=== PATIENT | male | born 1985 | race Caucasian/White ===

== ENCOUNTER 2020-01-08 03:58 | Emergency (ER) | payer OTHER ==
[2020-01-08] MEDS ORDERED: Dexamethasone 10 MG/ML SDV IVPUSH ONE (04:35)
--- NOTE | 2020-01-08 04:52 | EDM.PDOC ---
ED HPI GENERAL MEDICAL PROBLEM - General Chief Complaint: Back Pain or Injury Stated Complaint: BOTH LEGS ARE GOING NUMB Time Seen by Provider: 01/08/20 04:25 - History of Present Illness INITIAL COMMENTS - FREE TEXT/NARRATIVE: 34-year-old male with history of disc surgery in the past presenting to ER for lower back pain lower extremity weakness and numbness. Symptoms began at 11 AM day prior. No trauma no fever no IV drug use. States that he is slipped legs have been giving out he feels numbness and he feels like his legs are like Jell -O sometimes. patient reports similar symptoms when he had the back surgery in the past. back Pain Score (Numeric/FACES): 6 - Related Data Allergies Allergy/AdvReac Type Severity Reaction Status Date / Time No Known Allergies Allergy Verified 01/08/20 04:34 Home Meds: Home Meds Diclofenac Sodium [Voltaren] 0 mg PO ASDIRECTED PRN 01/08/20 [History] Past Medical History Neurological History: Reports: Other (See Below) Other Neuro History: herniated disc - Infectious Disease History Infectious Disease History: Reports: Chicken Pox - Past Surgical History Neurological Surgical History: Reports: Other (See Below) Other Neurological Surgeries/Procedures: back sx for herniated disc Social & Family History - Family History Family Medical History: Noncontributory - Tobacco Use Smoking Status *Q: Never Smoker Second Hand Smoke Exposure: No - Caffeine Use Caffeine Use: Reports: Coffee - Recreational Drug Use Recreational Drug Use: No ED ROS GENERAL - Review of Systems Review Of Systems: Comprehensive ROS is negative, except as noted in HPI. ED EXAM, NEURO - Physical Exam Exam: See Below Text/Narrative:: DP pulses equal bilatterally lower extremities warm and well perfused. Exam Limited By: No Limitations General Appearance: Alert, WD/WN Ears: Normal External Exam Nose: Normal Inspection Neck: Normal Inspection Respiratory/Chest: Lungs Clear Cardiovascular: Regular Rate, Rhythm GI/Abdominal: Soft, Non-Tender Rectal (Males) Exam: Normal Exam, Normal Rectal Tone Neurological: Alert, Difficulty Walking, Other (lower extremity: left, 4/5 at the hip (flex ext), 3-4/5 at the knee (flex/extend), 4/5 in the ankles b/l). No : Saddle Anesthesia Back Exam: Other (mild ttp in the lumbar spine, healed spine ) Extremities: Non-Tender Course - Vital Signs Last Recorded V/S: Last Vital Signs Temp 97.2 F 01/08/20 04:47 Pulse 80 01/08/20 04:47 Resp 18 01/08/20 04:47 BP 175/115 H 01/08/20 04:47 Pulse Ox 98 01/08/20 04:47 - Orders/Labs/Meds Orders: Active Orders 24 hr Category Date Time Status BASIC METABOLIC PANEL,BMP [CHEM] Stat Lab 01/08/20 04:43 Ordered Labs: Laboratory Tests 01/08/20 Range/Units 04:42 WBC 9.88 (4.0-11.0) K/uL RBC 5.67 (4.50-5.90) M/uL Hgb 15.8 (13.0-17.0) g/dL Hct 48.5 (38.0-50.0) % MCV 85.5 (80.0-98.0) fL MCH 27.9 (27.0-32.0) pg MCHC 32.6 (31.0-37.0) g/dL RDW Std Deviation 41.8 (28.0-62.0) fl RDW Coeff of Armida 13 (11.0-15.0) % Plt Count 332 (150-400) K/uL MPV 9.00 (7.40-12.00) fL Nucleated RBC % 0.0 /100WBC Nucleated RBCs # 0 K/uL Meds: Medications Discontinued Medications Generic Name Dose Route Start Last Admin Trade Name Freq PRN Reason Stop Dose Admin Dexamethasone 16 mg 01/08/20 04:35 01/08/20 04:42 Dexamethasone IVPUSH 01/08/20 04:36 16 mg ONETIME ONE Administration - Re-Assessments/Exams Free Text/Narrative Re-Assessment/Exam: 01/08/20 04:51 patient will be emrgently transferred to [place] for supected cauda equina, decadron to be given here. spoke with Dr Weir who accepted the patient. the fastest way to transfer the patient is via fixed wing. Departure - Departure Time of Disposition: 04:53 Disposition: DC/Tfer to [facility] Clinical Impression: Cauda equina compression - Discharge Information [facility] [place] [facility] Care Provider[facility] - Forms: ED Department Discharge Sepsis Event Note - Evaluation Sepsis Screening Result: No Definite Risk - Focused Exam Vital Signs: Vital Signs Temp Pulse Resp BP Pulse Ox 01/08/20 04:47 97.2 F 80 18 175/115 H 98 01/08/20 04:12 96.1 F L 97 18 175/129 H 97 Date Exam was Performed: 01/08/20 Time Exam was Performed: 04:52 - My Orders Last 24 Hours: My Active Orders 01/08/20 04:43 BASIC METABOLIC PANEL,BMP [CHEM] Stat - Assessment/Plan Last 24 Hours: My Active Orders 01/08/20 04:43 BASIC METABOLIC PANEL,BMP [CHEM] Stat
[2020-01-08 05:03] LABS: BLOOD UREA NITROGEN,BUN 17 mg/dL (7.0-18.0); CARBON DIOXIDE,CO2 28.2 mmol/L (21.0-32.0); CHLORIDE,CL 105 mmol/L (98-107); GLUCOSE RANDOM 101 mg/dL (74-106); POTASSIUM,K 3.6 mmol/L (3.5-5.1); SODIUM,NA 144 mmol/L (136-148)
== END 2020-01-08 05:30 | disposition critical access hospital (66) ==
LOC: MW.ED 03:58
DX: G83.4 Cauda equina syndrome (principal)
CPT/HCPCS: 36415; 80048; 85027; 96374; 99284; J1100; 99285

== ENCOUNTER 2021-09-05 18:40 | Emergency (ER) | payer OTHER ==
--- NOTE | 2021-09-05 19:10 | EDM.PDOC ---
ED HPI GENERAL MEDICAL PROBLEM - General Chief Complaint: Respiratory Problem Stated Complaint: LOW OXYGEN Time Seen by Provider: 09/05/21 19:05 Source of Information: Reports: Patient History Limitations: Reports: No Limitations - History of Present Illness INITIAL COMMENTS - FREE TEXT/NARRATIVE: HISTORY AND PHYSICAL: History of present illness: Patient is a 36 year old male who presents to the ED with complaints of SOB since being diagnosed with COVID-19 this afternoon. He states he was given a prescription for an Albuterol inhaler, but didn't feel like it improved his SOB. Symptoms initially started a few days ago. History of HTN. Patient denies any fever, chills, headache, change in vision, syncope or near syncope. Denies any chest pain, back pain, abdominal pain, nausea, vomiting, diarrhea, constipation or dysuria. Has not noted any blood in urine or stool. Patient has been eating and drinking appropriately. No recent travel or sick contacts. Review of systems: As per history of present illness and below otherwise all systems reviewed and negative. Past medical history: As per history of present illness and as reviewed below otherwise noncontributory. Surgical history: As per history of present illness and as reviewed below otherwise noncontributory. Social history: See social history for further information Family history: As per history of present illness and as reviewed below otherwise noncontributory. Physical exam: General: Well developed and well nourished 36 year old male. Alert and orientated x 3. Nontoxic in appearance and in no acute distress. Vital signs are stable and have been reviewed by me. Nursing notes were reviewed. HEENT: Atraumatic, normocephalic, pupils equal and reactive bilaterally, negative for conjunctival pallor or scleral icterus, mucous membranes moist, TMs normal bilaterally, throat clear, neck supple, nontender, trachea midline. No drooling or trismus noted. No meningeal signs. No hot potato voice noted. Lungs: Clear to auscultation bilaterally. No wheezes, rales, or rhonchi. Chest nontender. Normal work of breathing, no accessory muscles used. Heart: S1S2, regular rate and rhythm without overt murmur, gallops, or rubs. No JVD. No peripheral edema Abdomen: Soft, nondistended, nontender. Skin: Intact, warm, dry. No lesions or rashes noted. Hematologic: No petechiae or purpra. Mucosa appropriate color and normal nail bed color and refill. Extremities: Atraumatic, moves all extremities per self without difficulty or deficits, negative for cords or calf pain. Neurovascular unremarkable. Neuro: Awake, alert, oriented. Cranial nerves II through XII unremarkable. Cerebellum unremarkable. Motor and sensory unremarkable throughout. Exam nonfocal. Psychiatric: Mood and affect are appropriate. Normal thought process. Answering questions appropriately. Please note that the patient was seen and evaluated during the 2019 SARS-CoV-2 novel coronavirus pandemic period. Community viral transmission is ongoing at time of this encounter and the emergency department is operating under pandemic response procedures. Medical Decision Making: Patient is a 36 year old male who presents to the ED with COVID 19 who complaints of SOB. Patient states he didn't have a chest xray or labs done at the clinic. His oxygen saturation is 90-92% on room air. Will do basic labs and obtain chest x-ray, lung sounds are clear. Labs are unremarkable. Chest x-ray is unremarkable. I did note that the patient briefly drop to 89% on RA, but quickly goes back to 92%. We discussed treatment options including admission for [facility]. He does not want to be admitted. We discussed home oxygen. I informed him it would require [facility] coming in from home to set this up for him. He refuses to wait, would like discharge. VSS, oxygen 93% RA. Will order outpatien MAT. I have talked with the patient about today's findings, in addition to providing specific details for plan of care. Reassessment at the time of disposition demonstrates that the patient is in no acute distress. The patient is stable for discharge, counseling was provided and we discussed in great detail signs and symptoms that would prompt them to return to the Emergency Department. Medication, follow up and supportive care measures were reviewed and discussed. Voices understanding and is agreeable to plan of care. Denies any further questions or concerns at this time. Diagnostics: CBC, CMP, chest x-ray Therapeutics: None Prescription: Outpatient antibody therapy Impression: COVID-19 Plan: 1. Your lab work and chest x-ray is within normal limits. Your oxygen saturation is borderline 90-93% on room air. Continue to monitor for trouble breathing, new confusion or inability to arouse, bluish lips or face or any of the other symptoms we discussed -if this occurs please return to the emergency room immediately. 2. Please self quarantine until cleared by [facility]. Inform any persons that you have been in contact with since you started becoming symptomatic that you have tested positive; they should be made aware and take the appropriate steps as needed. 3. You can take NyQuil during the evening to help get a restful night sleep. May alternate Tylenol and ibuprofen as needed for pain and fever management. 4. The [facility] department will be calling you and following up with you. The [id number] Hotline phone number , They are open Sunday - Sunday 7am - 7pm. Follow up with your primary care provider for re-evaluation as directed. Definitive disposition and diagnosis as appropriate pending reevaluation and review of above. - Related Data Allergies Allergy/AdvReac Type Severity Reaction Status Date / Time No Known Allergies Allergy Verified 09/05/21 18:49 Home Meds: Home Meds . [Unable to Verify Home Med List] 09/05/21 [History] Past Medical History Cardiovascular History: Reports: Hypertension Neurological History: Reports: Other (See Below) Other Neuro History: herniated disc - Infectious Disease History Infectious Disease History: Reports: Chicken Pox, Novel Coronavirus - Past Surgical History Neurological Surgical History: Reports: Other (See Below) Other Neurological Surgeries/Procedures: back sx for herniated disc Social & Family History - Family History Family Medical History: No Pertinent Family History - Tobacco Use Tobacco Use Status *Q: Never Tobacco User - Caffeine Use Caffeine Use: Reports: Coffee - Recreational Drug Use Recreational Drug Use: No ED ROS GENERAL - Review of Systems Review Of Systems: Comprehensive ROS is negative, except as noted in HPI. ED EXAM, GENERAL - Physical Exam Exam: See Below (See dictation) Course - Vital Signs Last Recorded V/S: Last Vital Signs Temp 98.4 F 09/05/21 18:51 Pulse 111 H 09/05/21 20:01 Resp 20 09/05/21 20:01 BP 120/64 09/05/21 20:01 Pulse Ox 92 L 09/05/21 20:01 - Orders/Labs/Meds Labs: Laboratory Tests 09/05/21 09/05/21 Range/Units 19:25 19:25 WBC 9.12 (4.0-11.0) K/uL RBC 5.22 (4.50-5.90) M/uL Hgb 14.8 (13.0-17.0) g/dL Hct 42.6 (38.0-50.0) % MCV 81.6 (80.0-98.0) fL MCH 28.4 (27.0-32.0) pg MCHC 34.7 (31.0-37.0) g/dL RDW Std Deviation 39.0 (28.0-62.0) fl RDW Coeff of Armida 13 (11.0-15.0) % Plt Count 170 (150-400) K/uL MPV 9.20 (7.40-12.00) fL Neut % (Auto) 73.2 (48.0-80.0) % Lymph % (Auto) 20.7 (16.0-40.0) % Ogle % (Auto) 6.0 (0.0-15.0) % Eos % (Auto) 0.0 (0.0-7.0) % Baso % (Auto) 0.1 (0.0-1.5) % Neut # (Auto) 6.7 H (1.4-5.7) K/uL Lymph # (Auto) 1.9 (0.6-2.4) K/uL Ogle # (Auto) 0.6 (0.0-0.8) K/uL Eos # (Auto) 0.0 (0.0-0.7) K/uL Baso # (Auto) 0.0 (0.0-0.1) K/uL Nucleated RBC % 0.0 /100WBC Nucleated RBCs # 0 K/uL Sodium 127 L (136-148) mmol/L Potassium 4.0 (3.5-5.1) mmol/L Chloride 89 L (98-107) mmol/L Carbon Dioxide 28.6 (21.0-32.0) mmol/L BUN 18 (7.0-18.0) mg/dL Creatinine 1.4 H (0.8-1.3) mg/dL Est Cr Clr Drug Dosing TNP Estimated GFR (MDRD) 56.7 ml/min Glucose 126 H (74-106) mg/dL Calcium 7.5 L (8.5-10.1) mg/dL Total Bilirubin 0.5 (0.2-1.0) mg/dL AST 97 H (15-37) IU/L ALT 249 H (14-63) IU/L Alkaline Phosphatase 37 L (46-116) U/L Total Protein 8.0 (6.4-8.2) g/dL Albumin 3.3 L (3.4-5.0) g/dL Globulin 4.7 H (2.6-4.0) g/dL Albumin/Globulin Ratio 0.7 L (0.9-1.6) Departure - Departure Time of Disposition: 20:00 Disposition: Home, Self-Care 01 Clinical Impression: COVID-19 - Discharge Information Instructions: 10 Things You Can Do to Manage Your COVID-19 Symptoms at Home - [facility] (05/06/2021) Referrals: Anselmo Kelley [Primary Care Provider] - Forms: ED Department Discharge Additional Instructions: The following information is given to patients seen in the emergency department who are being discharged to home. This information is to outline your options for follow-up care. We provide all patients seen in our emergency department with a follow-up referral. The need for follow-up, as well as the timing and circumstances, are variable depending upon the specifics of your emergency department visit. If you don't have a primary care physician on staff, we will provide you with a referral. We always advise you to contact your personal physician following an emergency department visit to inform them of the circumstance of the visit and for follow-up with them and/or the need for any referrals to a consulting specialist. The emergency department will also refer you to a specialist when appropriate. This referral assures that you have the opportunity for follow-up care with a specialist. All of these measure are taken in an effort to provide you with optimal care, which includes your follow-up. Under all circumstances we always encourage you to contact your private physician who remains a resource for coordinating your care. When calling for follow-up care, please make the office aware that this follow-up is from your recent emergency room visit. If for any reason you are refused follow-up, please contact the [facility] Emergency Department at and asked to speak to the emergency department charge nurse. [facility] [address] [place] [id number] [facility] [address] [place] [id number] Thank you for choosing the [facility] emergency department in [place] for your medical needs today. It was a pleasure caring for you. Today you were seen in the emergency department for shortness of breathe with COVID. 1. Your lab work and chest x-ray is within normal limits. Your oxygen saturation is borderline 90-93% on room air. Continue to monitor for trouble breathing, new confusion or inability to arouse, bluish lips or face or any of the other symptoms we discussed -if this occurs please return to the emergency room immediately. The hospital should be calling you tomorrow to set up outpatient monoclonal antibody therapy infusion ( one time dose). 2. Please self quarantine until cleared by [facility]. Inform any persons that you have been in contact with since you started becoming symptomatic that you have tested positive; they should be made aware and take the appropriate steps as needed. 3. You can take NyQuil during the evening to help get a restful night sleep. May alternate Tylenol and ibuprofen as needed for pain and fever management. 4. The [facility] department will be calling you and following up with you. The [facility] 19 Hotline phone number , They are open Sunday - Sunday 7am - 7pm. Follow up with your primary care provider for re-evaluation as directed. Sepsis Event Note (ED) - Evaluation Sepsis Screening Result: No Definite Risk - Focused Exam Vital Signs: Vital Signs Temp Pulse Resp BP Pulse Ox 09/05/21 20:01 111 H 20 120/64 92 L 09/05/21 18:51 98.4 F 111 H 18 114/57 L 92 L
--- NOTE | 2021-09-05 19:42 | CR ---
INDICATION: low o2 TECHNIQUE: Chest 1 view. COMPARISON: None. FINDINGS: Cardiovascular and mediastinum: Heart size and vasculature are normal in caliber and appearance. Mediastinum is within normal limits. Lungs and pleural spaces: Lungs are clear. No sign of infiltrate or mass. No sign of pleural effusion. No pneumothorax. Bones and soft tissues: No significant findings. IMPRESSION: Unremarkable chest. Dictated by: Yaniv Lucero MD @ 09/05/2021 19:41:02 (Electronically Signed)
[2021-09-05 19:49] LABS: BLOOD UREA NITROGEN,BUN 18 mg/dL (7.0-18.0); CARBON DIOXIDE,CO2 28.6 mmol/L (21.0-32.0); CHLORIDE,CL 89 mmol/L (98-107); GLUCOSE RANDOM 126 mg/dL (74-106); SODIUM,NA 127 mmol/L (136-148)
== END 2021-09-05 20:08 | disposition home or self-care (01) ==
LOC: MW.ED 18:40
DX: U07.1 COVID-19 (principal); I10 Essential (primary) hypertension
CPT/HCPCS: 36415; 71045; 71045-26; 80053; 85025; 99285-25

== ENCOUNTER 2021-09-06 07:58 | Inpatient (IN) | payer OTHER ==
--- NOTE | 2021-09-06 08:16 | EDM.PDOC ---
ED HPI GENERAL MEDICAL PROBLEM - General Chief Complaint: Respiratory Problem Stated Complaint: LOW OXYGEN Time Seen by Provider: 09/06/21 08:30 Source of Information: Reports: Patient History Limitations: Reports: No Limitations - History of Present Illness INITIAL COMMENTS - FREE TEXT/NARRATIVE: Patient is a 36-year-old male who presents today for worsening shortness of breath. Patient tested positive for Covid a few days ago and states has been feeling worse. Stated shortness of breath is getting worse and he feels more fatigued as well he is able to tolerate p.o. but not eating as much he normally does. Denies any abdominal pain chest pain fever chills or other symptoms but discharge on breath is worse with exertion. - Related Data Allergies Allergy/AdvReac Type Severity Reaction Status Date / Time No Known Allergies Allergy Verified 09/05/21 18:49 Home Meds: Home Meds . [Unable to Verify Home Med List] 09/05/21 [History] Past Medical History Cardiovascular History: Reports: Hypertension Neurological History: Reports: Other (See Below) Other Neuro History: herniated disc - Infectious Disease History Infectious Disease History: Reports: Chicken Pox, Novel Coronavirus - Past Surgical History Neurological Surgical History: Reports: Other (See Below) Other Neurological Surgeries/Procedures: back sx for herniated disc Social & Family History - Family History Family Medical History: No Pertinent Family History - Caffeine Use Caffeine Use: Reports: Coffee ED ROS GENERAL - Review of Systems Review Of Systems: See Below Constitutional: Reports: Fatigue HEENT: Reports: No Symptoms Respiratory: Reports: Shortness of Breath Cardiovascular: Reports: No Symptoms Endocrine: Reports: No Symptoms GI/Abdominal: Reports: No Symptoms : Reports: No Symptoms Musculoskeletal: Reports: No Symptoms Skin: Reports: No Symptoms Neurological: Reports: No Symptoms Psychiatric: Reports: No Symptoms Hematologic/Lymphatic: Reports: No Symptoms Immunologic: Reports: No Symptoms ED EXAM, GENERAL - Physical Exam Exam: See Below Exam Limited By: No Limitations General Appearance: Alert, WD/WN, No Apparent Distress Eye Exam: Bilateral Eye: EOMI, PERRL Ears: Normal External Exam Nose: Normal Inspection Throat/Mouth: Normal Inspection Head: Atraumatic Neck: Normal Inspection, Supple, Non-Tender Respiratory/Chest: No Respiratory Distress, Lungs Clear, Normal Breath Sounds Cardiovascular: Normal Peripheral Pulses, Regular Rate, Rhythm GI/Abdominal: Normal Bowel Sounds, Soft, Non-Tender Back Exam: Normal Inspection Neurological: Alert, Oriented, CN II-XII Intact, Normal Cognition Skin Exam: Warm #1 Interpretation EKG Date: 09/06/21 Time: 08:00 Rhythm: Other (sinus tachy) Rate (Beats/Min): 106 ST-T: Normal Course - Vital Signs Last Recorded V/S: Last Vital Signs Temp 97.8 F 09/06/21 07:58 Pulse 111 H 09/06/21 08:25 Resp 22 H 09/06/21 08:25 BP 144/85 H 09/06/21 07:58 Pulse Ox 92 L 09/06/21 08:25 - Orders/Labs/Meds Orders: Active Orders 24 hr Category Date Time Status Patient Status [ADT] Routine ADT 09/06/21 09:08 Active RT Aerosol Therapy [RC] ASDIRECTED Care 09/06/21 08:25 Active COMPREHENSIVE METABOLIC PN,CMP [CHEM] Stat Lab 09/06/21 08:44 Received CORONAVIRUS COVID-19 NELLY [MOLEC] Stat Lab 09/06/21 08:12 Ordered CULTURE BLOOD [BC] Stat Lab 09/06/21 08:09 Received CULTURE BLOOD [BC] Stat Lab 09/06/21 08:44 Received TROPONIN I [CHEM] Stat Lab 09/06/21 08:44 Received UA W/MYLES RFLX IF INDICATED [URIN] Stat Lab 09/06/21 09:06 Ordered Remdesivir 200 mg Med 09/06/21 08:45 Active Sodium Chloride 0.9% [Normal Saline] 250 ml IV ONETIME Sodium Chloride 0.9% [Normal Saline] 1,000 ml Med 09/06/21 08:29 Active IV .Bolus Blood Culture x2 Reflex Set [OM.PC] Stat Oth 09/06/21 08:29 Ordered Medication Orders Sodium Chloride (Normal Saline) 1,000 mls @ 1,000 mls/hr IV .Bolus ONE Stop: 09/06/21 09:28 Last Admin: 09/06/21 08:46 Dose: 1,000 mls/hr Documented by: RAMANA Remdesivir 200 mg/ Sodium (Chloride) 250 mls @ 250 mls/hr IV ONETIME ONE Stop: 09/06/21 09:44 Labs: Laboratory Tests 09/06/21 Range/Units 08:09 WBC 11.87 H (4.0-11.0) K/uL RBC 5.19 (4.50-5.90) M/uL Hgb 14.7 (13.0-17.0) g/dL Hct 42.1 (38.0-50.0) % MCV 81.1 (80.0-98.0) fL MCH 28.3 (27.0-32.0) pg MCHC 34.9 (31.0-37.0) g/dL RDW Std Deviation 39.0 (28.0-62.0) fl RDW Coeff of Armida 13 (11.0-15.0) % Plt Count 191 (150-400) K/uL MPV 9.80 (7.40-12.00) fL Neut % (Auto) 80.4 H (48.0-80.0) % Lymph % (Auto) 14.7 L (16.0-40.0) % [place] % (Auto) 4.8 (0.0-15.0) % Eos % (Auto) 0.0 (0.0-7.0) % Baso % (Auto) 0.1 (0.0-1.5) % Neut # (Auto) 9.6 H (1.4-5.7) K/uL Lymph # (Auto) 1.7 (0.6-2.4) K/uL [place] # (Auto) 0.6 (0.0-0.8) K/uL Eos # (Auto) 0.0 (0.0-0.7) K/uL Baso # (Auto) 0.0 (0.0-0.1) K/uL Nucleated RBC % 0.0 /100WBC Nucleated RBCs # 0 K/uL Meds: Medications Generic Name Dose Route Start Last Admin Trade Name Freq PRN Reason Stop Dose Admin Sodium Chloride 1,000 mls @ 1,000 mls/hr 09/06/21 08:29 09/06/21 08:46 Normal Saline IV 09/06/21 09:28 1,000 mls/hr .Bolus ONE Administration Remdesivir 200 mg/ Sodium 250 mls @ 250 mls/hr 09/06/21 08:45 Chloride IV 09/06/21 09:44 ONETIME ONE Discontinued Medications Generic Name Dose Route Start Last Admin Trade Name Freq PRN Reason Stop Dose Admin Albuterol/Ipratropium 3 ml 09/06/21 08:25 09/06/21 08:46 Albuterol/Ipratropium 3.0-0.5 Mg/3 Ml Neb Soln NEB 09/06/21 08:26 3 ml ONETIME ONE Administration Dexamethasone 10 mg 09/06/21 08:25 09/06/21 08:46 Dexamethasone 10 Mg/Ml Sdv IVPUSH 09/06/21 08:26 10 mg ONETIME ONE Administration Remdesivir 200 mg/ Sodium 250 mls @ 250 mls/hr 09/06/21 08:25 Chloride IV 09/06/21 08:26 ONETIME ONE - Re-Assessments/Exams Free Text/Narrative Re-Assessment/Exam: 09/06/21 09:05 And trigger sepsis protocol but symptoms are likely related to Covid and no bacterial source. We will send blood cultures UA but hold off on antibiotics and 20 cc/KG daily because we do not overload him do this positive in Covid 09/06/21 09:09 Patient will be admitted to the hospital for further care. Departure - Departure Time of Disposition: 09:09 Disposition: Home, Self-Care 01 Condition: Good Clinical Impression: COVID-19 - Discharge Information Referrals: PCP,None [Primary Care Provider] - Forms: ED Department Discharge Critical Care Note - Critical Care Note Total Time (mins): 45 Comments: Critical Care Procedure Note Authorized and Performed by: Dr. Carvalho Total critical care time: Approximately Due to a high probability of clinically significant, life threatening deteriora tion, the patient required my highest level of preparedness to intervene emergently and I personally spent this critical care time directly and personally managing the patient. This critical care time included obtaining a history; examining the patient; pulse oximetry; ordering and review of studies; arranging urgent treatment with development of a management plan; evaluation of patient's response to treatment; frequent reassessment; and, discussions with other providers. This critical care time was performed to assess and manage the high probability of imminent, life-threatening deterioration that could result in multi-organ failure. It was exclusive of separately billable procedures and treating other patients and teaching time. Sepsis Event Note (ED) - Evaluation Sepsis Screening Result: Possible Sepsis Risk - Focused Exam Vital Signs: Vital Signs Temp Pulse Resp BP Pulse Ox 09/06/21 08:25 111 H 22 H 92 L 09/06/21 07:58 97.8 F 109 H 20 144/85 H 82 L - My Orders Last 24 Hours: My Active Orders 09/06/21 08:09 CULTURE BLOOD [BC] Stat 09/06/21 08:12 CORONAVIRUS COVID-19 NELLY [MOLEC] Stat 09/06/21 08:25 RT Aerosol Therapy [RC] ASDIRECTED 09/06/21 08:29 Sodium Chloride 0.9% [Normal Saline] 1,000 ml IV .Bolus Blood Culture x2 Reflex Set [OM.PC] Stat 09/06/21 08:44 COMPREHENSIVE METABOLIC PN,CMP [CHEM] Stat CULTURE BLOOD [BC] Stat TROPONIN I [CHEM] Stat 09/06/21 08:45 Remdesivir 200 mg Sodium Chloride 0.9% [Normal Saline] 250 ml IV ONETIME 09/06/21 09:06 UA W/MYLES RFLX IF INDICATED [URIN] Stat 09/06/21 09:08 Patient Status [ADT] Routine - Assessment/Plan Last 24 Hours: My Active Orders 09/06/21 08:09 CULTURE BLOOD [BC] Stat 09/06/21 08:12 CORONAVIRUS COVID-19 NELLY [MOLEC] Stat 09/06/21 08:25 RT Aerosol Therapy [RC] ASDIRECTED 09/06/21 08:29 Sodium Chloride 0.9% [Normal Saline] 1,000 ml IV .Bolus Blood Culture x2 Reflex Set [OM.PC] Stat 09/06/21 08:44 COMPREHENSIVE METABOLIC PN,CMP [CHEM] Stat CULTURE BLOOD [BC] Stat TROPONIN I [CHEM] Stat 09/06/21 08:45 Remdesivir 200 mg Sodium Chloride 0.9% [Normal Saline] 250 ml IV ONETIME 09/06/21 09:06 UA W/MYLES RFLX IF INDICATED [URIN] Stat 09/06/21 09:08 Patient Status [ADT] Routine Plan: Patient is a 36-year-old male who presents today for worsening shortness of breath patient has a positive Covid a few days ago. Patient ox level was 82% on room air placed on 3 l an hour 94% breathing more comfortably. Will start steroids and remdesivir. Also obtain x-ray labs and likely admit.
[2021-09-06] MEDS ORDERED: Dexamethasone 10 MG/ML SDV IVPUSH ONE (08:25)
[2021-09-06] MEDS ORDERED: Albuterol/Ipratropium 3.0-0.5 MG/3 ML Neb Soln NEB ONE (08:25)
[2021-09-06] MEDS ORDERED: REMDESIVIR 200 MG in Sodium Chloride 0.9% 250 ML IV ONE ×2 (08:25→08:45)
[2021-09-06] MEDS ORDERED: Sodium Chloride 0.9% 1,000 ML IV ONE (08:29)
--- NOTE | 2021-09-06 09:06 | CR ---
Indication: Shortness of breath Comparison: Single-view chest September 05, 2021 Technique: Single AP view chest Findings: There is hyperinflation and mild interstitial change. There are patchy ground-glass and airspace opacities of the bilateral hemithoraces likely representing multifocal infiltrates. There is no pneumothorax. The cardiac silhouette is mildly prominent. The bony thorax is grossly intact. Impression: There are interstitial, ground-glass and airspace opacities with moderate interstitial prominence commensurate with likely developing multifocal infiltrates and/or pulmonary edema. Correlate with history of jiménez by wrist pneumonia. Dictated by Tyler Lim MD @ 09/06/2021 9:04:41 AM (Electronically Signed)
[2021-09-06 09:34] LABS: BLOOD UREA NITROGEN,BUN 16 mg/dL (7.0-18.0); CARBON DIOXIDE,CO2 26.5 mmol/L (21.0-32.0); CHLORIDE,CL 90 mmol/L (98-107); GLUCOSE RANDOM 124 mg/dL (74-106); POTASSIUM,K 3.9 mmol/L (3.5-5.1); SODIUM,NA 125 mmol/L (136-148)
--- NOTE | 2021-09-06 15:59 | PCM.HP.2 ---
H&P History of Present Illness - General Date of Service: 09/06/21 Admit Problem/Dx: Admission Diagnosis/Problem Admission Diagnosis/Problem Hypoxia - History of Present Illness Initial Comments - Free Text/Narative: 36 yo male who presents with one week of fevers, cough and several day history of shortness of breath. He denies any chest pain, or lightheadedness. On presentation he is requiring 3 L NC. He tested positive for COVID yesterday. Patient reports being vaccinated for COVID last year. - Related Data Allergies/Adverse Reactions: Allergies Allergy/AdvReac Type Severity Reaction Status Date / Time No Known Allergies Allergy Verified 09/06/21 13:07 Home Medications: Home Meds Cyclobenzaprine HCl 10 mg PO TID PRN 09/06/21 [History] Doxycycline [Doxycycline Hyclate] 100 mg PO Q12HR 09/06/21 [History] Naproxen Sodium 550 mg PO BID 09/06/21 [History] amLODIPine Besylate [Amlodipine Besylate] 10 mg PO DAILY 09/06/21 [History] hydroCHLOROthiazide [Hydrochlorothiazide] 25 mg PO DAILY 09/06/21 [History] lisinopriL [Lisinopril] 40 mg PO DAILY 09/06/21 [History] Past Medical History HEENT History: Reports: None Cardiovascular History: Reports: Hypertension Respiratory History: Reports: None Gastrointestinal History: Reports: None Genitourinary History: Reports: None Musculoskeletal History: Reports: None Neurological History: Reports: Other (See Below) Other Neuro History: herniated disc Psychiatric History: Reports: Anxiety Endocrine/Metabolic History: Reports: Obesity/BMI 30+ Immunologic History: Reports: None Oncologic (Cancer) History: Reports: None Dermatologic History: Reports: None - Infectious Disease History Infectious Disease History: Reports: Chicken Pox, Novel Coronavirus - Past Surgical History Head Surgeries/Procedures: Reports: None HEENT Surgical History: Reports: None Cardiovascular Surgical History: Reports: None GI Surgical History: Reports: Colonoscopy Neurological Surgical History: Reports: Other (See Below) Other Neurological Surgeries/Procedures: back sx for herniated disc Musculoskeletal Surgical History: Reports: None Dermatological Surgical History: Reports: None Social & Family History - Family History Family Medical History: No Pertinent Family History Oncologic: Reports: Breast, Colon Other Oncologic Family History: Father- colon cancer - Tobacco Use Tobacco Use Status *Q: Never Tobacco User Second Hand Smoke Exposure: No - Caffeine Use Caffeine Use: Reports: None - Alcohol Use Days Per Week of Alcohol Use: 1 Number of Drinks Per Day: 0 Total Drinks Per Week: 0 - Recreational Drug Use Recreational Drug Use: No H&P Review of Systems - Review of Systems: Review Of Systems: Comprehensive ROS is negative, except as noted in HPI. Exam - Exam Exam: See Below - Vital Signs Vital Signs: Last Vital Signs Temp 35.7 C L 09/06/21 13:00 Pulse 96 09/06/21 13:00 Resp 18 09/06/21 13:00 BP 135/75 09/06/21 13:00 Pulse Ox 93 L 09/06/21 13:00 Weight: 109.724 kg - Exam General: Alert, Oriented HEENT: Mucosa Moist & [place] Lungs: Normal Respiratory Effort, Decreased Breath Sounds Cardiovascular: Regular Rate, Regular Rhythm GI/Abdominal Exam: Soft, Non-Tender, No Distention Extremities: Non-Tender, No Pedal Edema Skin: Warm, Dry, Intact Neurological: No: Focal Deficit - Patient Data Lab Results Last 24 hrs: Laboratory Results - last 24 hr 09/06/21 09/06/21 09/06/21 Range/Units 08:09 08:44 09:35 WBC 11.87 H (4.0-11.0) K/uL RBC 5.19 (4.50-5.90) M/uL Hgb 14.7 (13.0-17.0) g/dL Hct 42.1 (38.0-50.0) % MCV 81.1 (80.0-98.0) fL MCH 28.3 (27.0-32.0) pg MCHC 34.9 (31.0-37.0) g/dL RDW Std Deviation 39.0 (28.0-62.0) fl RDW Coeff of [place]ida 13 (11.0-15.0) % Plt Count 191 (150-400) K/uL MPV 9.80 (7.40-12.00) fL Neut % (Auto) 80.4 H (48.0-80.0) % Lymph % (Auto) 14.7 L (16.0-40.0) % [place] % (Auto) 4.8 (0.0-15.0) % Eos % (Auto) 0.0 (0.0-7.0) % Baso % (Auto) 0.1 (0.0-1.5) % Neut # (Auto) 9.6 H (1.4-5.7) K/uL Lymph # (Auto) 1.7 (0.6-2.4) K/uL [place] # (Auto) 0.6 (0.0-0.8) K/uL Eos # (Auto) 0.0 (0.0-0.7) K/uL Baso # (Auto) 0.0 (0.0-0.1) K/uL Nucleated RBC % 0.0 /100WBC Nucleated RBCs # 0 K/uL Sodium 125 L (136-148) mmol/L Potassium 3.9 (3.5-5.1) mmol/L Chloride 90 L (98-107) mmol/L Carbon Dioxide 26.5 (21.0-32.0) mmol/L BUN 16 (7.0-18.0) mg/dL Creatinine 1.3 (0.8-1.3) mg/dL Est Cr Clr Drug Dosing 74.54 mL/min Estimated GFR (MDRD) > 60.0 ml/min Glucose 124 H (74-106) mg/dL Calcium 8.2 L (8.5-10.1) mg/dL Total Bilirubin 0.6 (0.2-1.0) mg/dL AST 73 H (15-37) IU/L ALT 196 H (14-63) IU/L Alkaline Phosphatase 35 L (46-116) U/L Troponin I < 0.050 (0.000-0.056) ng/mL Total Protein 7.7 (6.4-8.2) g/dL Albumin 3.0 L (3.4-5.0) g/dL Globulin 4.7 H (2.6-4.0) g/dL Albumin/Globulin Ratio 0.6 L (0.9-1.6) Urine Color YELLOW Urine Appearance CLEAR Urine pH 6.0 (5.0-8.0) Ur Specific [place] 1.025 (1.001-1.035) Urine Protein 30 H (NEGATIVE) mg/dL Urine Glucose (UA) NEGATIVE (NEGATIVE) mg/dL Urine Ketones TRACE H (NEGATIVE) mg/dL Urine Occult Blood TRACE-LYSED H (NEGATIVE) Urine Nitrite NEGATIVE (NEGATIVE) Urine Bilirubin NEGATIVE (NEGATIVE) Urine Urobilinogen 0.2 (<2.0) EU/dL Ur Leukocyte Esterase NEGATIVE (NEGATIVE) Urine RBC 0-2 (0-2/HPF) Urine WBC 0-1 (0-5/HPF) Ur Epithelial Cells RARE (NONE-FEW) Urine Bacteria RARE (NEGATIVE) Result Diagrams: 09/06/21 08:09 09/06/21 08:44 Sepsis Event Note - Evaluation Sepsis Screening Result: No Definite Risk - Focused Exam Vital Signs: Vital Signs Temp Pulse Resp BP Pulse Ox 09/06/21 13:00 35.7 C L 96 18 135/75 93 L 09/06/21 11:17 36.6 C 92 20 127/82 92 L 09/06/21 10:22 97 105/56 L 95 09/06/21 09:43 101 H 129/77 90 L 09/06/21 08:52 102 H 116/60 94 L 09/06/21 08:25 111 H 22 H 92 L 09/06/21 07:58 36.6 C 109 H 20 144/85 H 82 L - Problem List (1) COVID-19 SNOMED Code(s): 764402071 ICD Code: U07.1 - COVID-19 Status: Acute Current Visit: Yes Problem List Initiated/Reviewed/Updated: Yes Orders Last 24hrs: Active Orders 24 hr Category Date Time Status Patient Status [ADT] Routine ADT 09/06/21 09:08 Active RT Aerosol Therapy [RC] ASDIRECTED Care 09/06/21 08:25 Active Regular Diet [DIET] Diet 09/06/21 Lunch Active Chest PE [Ang Chest] [CT] Routine Exams 09/06/21 15:52 Ordered CULTURE BLOOD [BC] Stat Lab 09/06/21 08:09 Received CULTURE BLOOD [BC] Stat Lab 09/06/21 08:44 Received Dextromethorphan/guaiFENesin [Robitussin DM] Med 09/06/21 15:18 Active 10 ml PO Q6H PRN Remdesivir 100 mg Med 09/07/21 08:00 Ordered Sodium Chloride 0.9% [Normal Saline AdvBag] 100 ml IV Q24H dexAMETHasone Med 09/07/21 09:00 Ordered 6 mg PO DAILY Blood Culture x2 Reflex Set [OM.PC] Stat Oth 09/06/21 08:29 Ordered Medication Orders Dexamethasone (Dexamethasone 4 Mg Tab) 6 mg PO DAILY [facility] Guaifenesin/Dextromethorphan (Guaifenesin/Dextromethorphan 100-10 Mg/5 Ml Soln 10 Ml Cup) 10 ml PO Q6H PRN PRN Reason: Cough Remdesivir 100 mg/ Sodium (Chloride) 100 mls @ 100 mls/hr IV Q24H [facility] Stop: 09/10/21 08:59 Assessment/Plan Comment:: 36 yo male admitted for COVID-19 pneumonia with hypoxia hypoxia: on 3 L NC COVID: treating with remdesivir, dexamethasone lovenox for DVT prophylaxis.
[2021-09-06 16:55] LABS: BLOOD UREA NITROGEN,BUN 15 mg/dL (7.0-18.0); CARBON DIOXIDE,CO2 28.8 mmol/L (21.0-32.0); CHLORIDE,CL 94 mmol/L (98-107); GLUCOSE RANDOM 135 mg/dL (74-106); POTASSIUM,K 4.5 mmol/L (3.5-5.1); SODIUM,NA 132 mmol/L (136-148)
[2021-09-06] MEDS: Enoxaparin 40 MG/0.4 ML Syringe SUBCUT SCH (17:18)
[2021-09-06] MEDS: guaiFENesin/Dextromethorphan 100-10 MG/5 ML Soln 10 ML Cup PO PRN (17:45)
[2021-09-06] MEDS ORDERED: Iopamidol 755 MG/ML 500 ML Multipack Bottle IVPUSH STA (17:47)
--- NOTE | 2021-09-06 18:33 | CT ---
INDICATION: Hypoxia, COVID TECHNIQUE: Contrast enhanced axial CT imaging through the chest, optimized for assessment of the pulmonary arterial tree. 100 mL Isovue 370 contrast agent was administered intravenously. Sagittal and coronal reconstructions are provided. COMPARISON: None FINDINGS: There is adequate opacification of the pulmonary arterial tree without evidence of thromboembolism. The main pulmonary artery is nonenlarged. The heart is normal in size. There is no pericardial effusion. The thoracic aorta is normal in caliber. There is no mediastinal lymphadenopathy. There are patchy ground-glass opacities throughout both lungs. There is no pleural effusion or pneumothorax. The thoracic osseous structures are unremarkable. Note is made of decreased attenuation of the liver parenchyma, consistent with steatosis. IMPRESSION: 1. Patchy ground-glass opacities throughout both lungs, compatible with changes of COVID-19 pneumonia. 2. No evidence of pulmonary embolism. 3. Hepatic steatosis. Please note that all CT scans at this facility use dose modulation, iterative reconstruction, and/or weight-based dosing when appropriate to reduce radiation dose to as low as reasonably achievable. Dictated by Nayeli Sellers MD @ 09/06/2021 6:32:01 PM (Electronically Signed)
[2021-09-07 08:05] LABS: BLOOD UREA NITROGEN,BUN 18 mg/dL (7.0-18.0); CHLORIDE,CL 99 mmol/L (98-107); GLUCOSE RANDOM 109 mg/dL (74-106); SODIUM,NA 133 mmol/L (136-148)
[2021-09-07] MEDS: Dexamethasone 4 MG Tab PO SCH (08:38)
[2021-09-07] MEDS: REMDESIVIR 100 MG in Sodium Chloride 0.9% 100 ML IV SCH (08:39)
[2021-09-07] MEDS: Enoxaparin 40 MG/0.4 ML Syringe SUBCUT SCH (15:37)
[2021-09-07] MEDS: guaiFENesin/Dextromethorphan 100-10 MG/5 ML Soln 10 ML Cup PO PRN (18:59)
--- NOTE | 2021-09-07 19:02 | PCM.PN ---
- General Info Date of Service: 09/07/21 - Review of Systems Systems Review Comment:: feeling better, shortness of breath with walking - Patient Data Vitals - Most Recent: Last Vital Signs Temp 36.3 C 09/07/21 16:00 Pulse 81 09/07/21 16:00 Resp 18 09/07/21 16:00 BP 112/58 L 09/07/21 16:00 Pulse Ox 91 L 09/07/21 16:00 Weight - Most Recent: 109.724 kg I&O - Last 24 Hours: Intake & Output 09/07/21 09/07/21 09/07/21 06:59 14:59 22:59 Intake Total 100 720 Balance 100 720 Lab Results Last 24 Hours: Laboratory Results - last 24 hr 09/07/21 09/07/21 Range/Units 06:07 06:07 WBC 9.31 (4.0-11.0) K/uL RBC 5.09 (4.50-5.90) M/uL Hgb 14.3 (13.0-17.0) g/dL Hct 42.0 (38.0-50.0) % MCV 82.5 (80.0-98.0) fL MCH 28.1 (27.0-32.0) pg MCHC 34.0 (31.0-37.0) g/dL RDW Std Deviation 40.1 (28.0-62.0) fl RDW Coeff of Armida 13 (11.0-15.0) % Plt Count 215 (150-400) K/uL MPV 10.30 (7.40-12.00) fL Neut % (Auto) 73.6 (48.0-80.0) % Lymph % (Auto) 18.3 (16.0-40.0) % [place] % (Auto) 8.1 (0.0-15.0) % Eos % (Auto) 0.0 (0.0-7.0) % Baso % (Auto) 0.0 (0.0-1.5) % Neut # (Auto) 6.9 H (1.4-5.7) K/uL Lymph # (Auto) 1.7 (0.6-2.4) K/uL [place] # (Auto) 0.8 (0.0-0.8) K/uL Eos # (Auto) 0.0 (0.0-0.7) K/uL Baso # (Auto) 0.0 (0.0-0.1) K/uL Nucleated RBC % 0.0 /100WBC Nucleated RBCs # 0 K/uL Sodium 133 L (136-148) mmol/L Potassium 4.0 (3.5-5.1) mmol/L Chloride 99 (98-107) mmol/L Carbon Dioxide 27.0 (21.0-32.0) mmol/L BUN 18 (7.0-18.0) mg/dL Creatinine 1.1 (0.8-1.3) mg/dL Est Cr Clr Drug Dosing 88.09 mL/min Estimated GFR (MDRD) > 60.0 ml/min Glucose 109 H (74-106) mg/dL Calcium 8.5 (8.5-10.1) mg/dL Total Bilirubin 0.4 (0.2-1.0) mg/dL AST 48 H (15-37) IU/L ALT 152 H (14-63) IU/L Alkaline Phosphatase 33 L (46-116) U/L Total Protein 7.7 (6.4-8.2) g/dL Albumin 2.8 L (3.4-5.0) g/dL Globulin 4.9 H (2.6-4.0) g/dL Albumin/Globulin Ratio 0.6 L (0.9-1.6) Yonatan Results Last 24 Hours: Microbiology 09/06/21 08:44 Aerobic Blood Culture - Preliminary Blood - Venous - Lab Draw NO GROWTH AFTER 1 DAY Anaerobic Blood Culture - Preliminary NO GROWTH AFTER 1 DAY 09/06/21 08:09 Aerobic Blood Culture - Preliminary Blood - Venous NO GROWTH AFTER 1 DAY Anaerobic Blood Culture - Preliminary NO GROWTH AFTER 1 DAY Med Orders - Current: Current Medications Dexamethasone (Dexamethasone 4 Mg Tab) 6 mg PO DAILY [facility] Last Admin: 09/07/21 08:38 Dose: 6 mg Documented by: Enoxaparin Sodium (Enoxaparin 40 Mg/0.4 Ml Syringe) 40 mg SUBCUT Q24H BRIANNE Last Admin: 09/07/21 15:37 Dose: 40 mg Documented by: Guaifenesin/Dextromethorphan (Guaifenesin/Dextromethorphan 100-10 Mg/5 Ml Soln 10 Ml Cup) 10 ml PO Q6H PRN PRN Reason: Cough Last Admin: 09/07/21 18:59 Dose: 10 ml Documented by: Remdesivir 100 mg/ Sodium (Chloride) 100 mls @ 100 mls/hr IV Q24H BRIANNE Stop: 09/10/21 08:59 Last Admin: 09/07/21 08:39 Dose: 100 mls/hr Documented by: Discontinued Medications Albuterol/Ipratropium (Albuterol/Ipratropium 3.0-0.5 Mg/3 Ml Neb Soln) 3 ml NEB ONETIME ONE Stop: 09/06/21 08:26 Last Admin: 09/06/21 08:46 Dose: 3 ml Documented by: Dexamethasone (Dexamethasone 10 Mg/Ml Sdv) 10 mg IVPUSH ONETIME ONE Stop: 09/06/21 08:26 Last Admin: 09/06/21 08:46 Dose: 10 mg Documented by: Remdesivir 200 mg/ Sodium (Chloride) 250 mls @ 250 mls/hr IV ONETIME ONE Stop: 09/06/21 08:26 Last Admin: 09/06/21 09:26 Dose: Not Given Documented by: Sodium Chloride (Normal Saline) 1,000 mls @ 1,000 mls/hr IV .Bolus ONE Stop: 09/06/21 09:28 Last Admin: 09/06/21 08:46 Dose: 1,000 mls/hr Documented by: Remdesivir 200 mg/ Sodium (Chloride) 250 mls @ 250 mls/hr IV ONETIME ONE Stop: 09/06/21 09:44 Last Admin: 09/06/21 09:25 Dose: 250 mls/hr Documented by: Iopamidol (Iopamidol 755 Mg/Ml 500 Ml Multipack Bottle) 100 ml IVPUSH ONETIME STA Stop: 09/06/21 17:48 Last Admin: 09/06/21 17:48 Dose: 100 ml Documented by: - Exam General: Alert, Oriented Neck: Supple Lungs: Clear to Auscultation, Normal Respiratory Effort Cardiovascular: Regular Rate, Regular Rhythm GI/Abdominal Exam: Normal Bowel Sounds, Soft, Non-Tender Extremities: Non-Tender, No Pedal Edema Skin: Warm, Dry, Intact Neurological: No New Focal Deficit - Patient Data Lab Results Last 24 hrs: Laboratory Results - last 24 hr 09/07/21 09/07/21 Range/Units 06:07 06:07 WBC 9.31 (4.0-11.0) K/uL RBC 5.09 (4.50-5.90) M/uL Hgb 14.3 (13.0-17.0) g/dL Hct 42.0 (38.0-50.0) % MCV 82.5 (80.0-98.0) fL MCH 28.1 (27.0-32.0) pg MCHC 34.0 (31.0-37.0) g/dL RDW Std Deviation 40.1 (28.0-62.0) fl RDW Coeff of Armida 13 (11.0-15.0) % Plt Count 215 (150-400) K/uL MPV 10.30 (7.40-12.00) fL Neut % (Auto) 73.6 (48.0-80.0) % Lymph % (Auto) 18.3 (16.0-40.0) % [place] % (Auto) 8.1 (0.0-15.0) % Eos % (Auto) 0.0 (0.0-7.0) % Baso % (Auto) 0.0 (0.0-1.5) % Neut # (Auto) 6.9 H (1.4-5.7) K/uL Lymph # (Auto) 1.7 (0.6-2.4) K/uL [place] # (Auto) 0.8 (0.0-0.8) K/uL Eos # (Auto) 0.0 (0.0-0.7) K/uL Baso # (Auto) 0.0 (0.0-0.1) K/uL Nucleated RBC % 0.0 /100WBC Nucleated RBCs # 0 K/uL Sodium 133 L (136-148) mmol/L Potassium 4.0 (3.5-5.1) mmol/L Chloride 99 (98-107) mmol/L Carbon Dioxide 27.0 (21.0-32.0) mmol/L BUN 18 (7.0-18.0) mg/dL Creatinine 1.1 (0.8-1.3) mg/dL Est Cr Clr Drug Dosing 88.09 mL/min Estimated GFR (MDRD) > 60.0 ml/min Glucose 109 H (74-106) mg/dL Calcium 8.5 (8.5-10.1) mg/dL Total Bilirubin 0.4 (0.2-1.0) mg/dL AST 48 H (15-37) IU/L ALT 152 H (14-63) IU/L Alkaline Phosphatase 33 L (46-116) U/L Total Protein 7.7 (6.4-8.2) g/dL Albumin 2.8 L (3.4-5.0) g/dL Globulin 4.9 H (2.6-4.0) g/dL Albumin/Globulin Ratio 0.6 L (0.9-1.6) Result Diagrams: 09/07/21 06:07 09/07/21 06:07 Yonatan Results Last 24 hrs: Microbiology 09/06/21 08:44 Aerobic Blood Culture - Preliminary Blood - Venous - Lab Draw NO GROWTH AFTER 1 DAY Anaerobic Blood Culture - Preliminary NO GROWTH AFTER 1 DAY 09/06/21 08:09 Aerobic Blood Culture - Preliminary Blood - Venous NO GROWTH AFTER 1 DAY Anaerobic Blood Culture - Preliminary NO GROWTH AFTER 1 DAY Sepsis Event Note - Evaluation Sepsis Screening Result: No Definite Risk - Focused Exam Vital Signs: Vital Signs Temp Pulse Resp BP Pulse Ox 09/07/21 16:00 36.3 C 81 18 112/58 L 91 L 09/07/21 12:00 35.6 C L 73 20 118/57 L 91 L 09/07/21 08:32 35.6 C L 83 22 H 112/79 91 L - Problem List & Annotations (1) COVID-19 SNOMED Code(s): 231153569 Code(s): U07.1 - COVID-19 Status: Acute Current Visit: Yes - Problem List Review Problem List Initiated/Reviewed/Updated: Yes - My Orders Last 24 Hours: My Active Orders 09/07/21 08:00 Remdesivir 100 mg Sodium Chloride 0.9% [Normal Saline AdvBag] 100 ml IV Q24H 09/07/21 09:00 dexAMETHasone 6 mg PO DAILY 09/08/21 05:11 CBC WITH AUTO DIFF [HEME] AM COMPREHENSIVE METABOLIC PN,CMP [CHEM] AM 09/09/21 05:11 CBC WITH AUTO DIFF [HEME] AM COMPREHENSIVE METABOLIC PN,CMP [CHEM] AM 09/10/21 05:11 CBC WITH AUTO DIFF [HEME] AM COMPREHENSIVE METABOLIC PN,CMP [CHEM] AM 09/11/21 05:11 CBC WITH AUTO DIFF [HEME] AM COMPREHENSIVE METABOLIC PN,CMP [CHEM] AM - Plan Plan:: 36 yo male admitted for COVID-19 pneumonia with hypoxia hypoxia: on 1.5 L NC COVID: treating with remdesivir, dexamethasone lovenox for DVT prophylaxis.
[2021-09-08] MEDS: REMDESIVIR 100 MG in Sodium Chloride 0.9% 100 ML IV SCH (08:02)
[2021-09-08] MEDS: Dexamethasone 4 MG Tab PO SCH (08:02)
[2021-09-08 08:21] LABS: BLOOD UREA NITROGEN,BUN 28 mg/dL (7.0-18.0); CARBON DIOXIDE,CO2 25.3 mmol/L (21.0-32.0); CHLORIDE,CL 104 mmol/L (98-107); GLUCOSE RANDOM 104 mg/dL (74-106); POTASSIUM,K 3.9 mmol/L (3.5-5.1); SODIUM,NA 139 mmol/L (136-148)
--- NOTE | 2021-09-08 14:13 | PCM.PN ---
- General Info Date of Service: 09/08/21 - Review of Systems Systems Review Comment:: feeling better, short of breath with walking - Patient Data Vitals - Most Recent: Last Vital Signs Temp 35.6 C L 09/08/21 11:57 Pulse 71 09/08/21 11:57 Resp 20 09/08/21 11:57 BP 125/79 09/08/21 11:57 Pulse Ox 92 L 09/08/21 11:57 Weight - Most Recent: 109.724 kg I&O - Last 24 Hours: Intake & Output 09/07/21 09/08/21 09/08/21 22:59 06:59 14:59 Intake Total 720 Balance 720 Lab Results Last 24 Hours: Laboratory Results - last 24 hr 09/08/21 09/08/21 Range/Units 06:56 06:56 WBC 9.09 (4.0-11.0) K/uL RBC 5.16 (4.50-5.90) M/uL Hgb 14.4 (13.0-17.0) g/dL Hct 43.1 (38.0-50.0) % MCV 83.5 (80.0-98.0) fL MCH 27.9 (27.0-32.0) pg MCHC 33.4 (31.0-37.0) g/dL RDW Std Deviation 40.8 (28.0-62.0) fl RDW Coeff of Armida 14 (11.0-15.0) % Plt Count 291 (150-400) K/uL MPV 9.80 (7.40-12.00) fL Neut % (Auto) 65.2 (48.0-80.0) % Lymph % (Auto) 24.2 (16.0-40.0) % [place] % (Auto) 10.5 (0.0-15.0) % Eos % (Auto) 0.1 (0.0-7.0) % Baso % (Auto) 0.0 (0.0-1.5) % Neut # (Auto) 5.9 H (1.4-5.7) K/uL Lymph # (Auto) 2.2 (0.6-2.4) K/uL [place] # (Auto) 1.0 H (0.0-0.8) K/uL Eos # (Auto) 0.0 (0.0-0.7) K/uL Baso # (Auto) 0.0 (0.0-0.1) K/uL Nucleated RBC % 0.0 /100WBC Nucleated RBCs # 0 K/uL Sodium 139 (136-148) mmol/L Potassium 3.9 (3.5-5.1) mmol/L Chloride 104 (98-107) mmol/L Carbon Dioxide 25.3 (21.0-32.0) mmol/L BUN 28 H (7.0-18.0) mg/dL Creatinine 1.1 (0.8-1.3) mg/dL Est Cr Clr Drug Dosing 88.09 mL/min Estimated GFR (MDRD) > 60.0 ml/min Glucose 104 (74-106) mg/dL Calcium 8.5 (8.5-10.1) mg/dL Total Bilirubin 0.6 (0.2-1.0) mg/dL AST 61 H (15-37) IU/L ALT 144 H (14-63) IU/L Alkaline Phosphatase 32 L (46-116) U/L Total Protein 7.6 (6.4-8.2) g/dL Albumin 2.8 L (3.4-5.0) g/dL Globulin 4.8 H (2.6-4.0) g/dL Albumin/Globulin Ratio 0.6 L (0.9-1.6) Yonatan Results Last 24 Hours: Microbiology 09/06/21 08:44 Aerobic Blood Culture - Preliminary Blood - Venous - Lab Draw NO GROWTH AFTER 2 DAYS Anaerobic Blood Culture - Preliminary NO GROWTH AFTER 2 DAYS 09/06/21 08:09 Aerobic Blood Culture - Preliminary Blood - Venous NO GROWTH AFTER 2 DAYS Anaerobic Blood Culture - Preliminary NO GROWTH AFTER 2 DAYS Med Orders - Current: Current Medications Dexamethasone (Dexamethasone 4 Mg Tab) 6 mg PO DAILY [facility] Last Admin: 09/08/21 08:02 Dose: 6 mg Documented by: Enoxaparin Sodium (Enoxaparin 40 Mg/0.4 Ml Syringe) 40 mg SUBCUT Q24H BRIANNE Last Admin: 09/07/21 15:37 Dose: 40 mg Documented by: Guaifenesin/Dextromethorphan (Guaifenesin/Dextromethorphan 100-10 Mg/5 Ml Soln 10 Ml Cup) 10 ml PO Q6H PRN PRN Reason: Cough Last Admin: 09/07/21 18:59 Dose: 10 ml Documented by: Remdesivir 100 mg/ Sodium (Chloride) 100 mls @ 100 mls/hr IV Q24H BRIANNE Stop: 09/10/21 08:59 Last Admin: 09/08/21 08:02 Dose: 100 mls/hr Documented by: Discontinued Medications Albuterol/Ipratropium (Albuterol/Ipratropium 3.0-0.5 Mg/3 Ml Neb Soln) 3 ml NEB ONETIME ONE Stop: 09/06/21 08:26 Last Admin: 09/06/21 08:46 Dose: 3 ml Documented by: Dexamethasone (Dexamethasone 10 Mg/Ml Sdv) 10 mg IVPUSH ONETIME ONE Stop: 09/06/21 08:26 Last Admin: 09/06/21 08:46 Dose: 10 mg Documented by: Remdesivir 200 mg/ Sodium (Chloride) 250 mls @ 250 mls/hr IV ONETIME ONE Stop: 09/06/21 08:26 Last Admin: 09/06/21 09:26 Dose: Not Given Documented by: Sodium Chloride (Normal Saline) 1,000 mls @ 1,000 mls/hr IV .Bolus ONE Stop: 09/06/21 09:28 Last Admin: 09/06/21 08:46 Dose: 1,000 mls/hr Documented by: Remdesivir 200 mg/ Sodium (Chloride) 250 mls @ 250 mls/hr IV ONETIME ONE Stop: 09/06/21 09:44 Last Admin: 09/06/21 09:25 Dose: 250 mls/hr Documented by: Iopamidol (Iopamidol 755 Mg/Ml 500 Ml Multipack Bottle) 100 ml IVPUSH ONETIME STA Stop: 09/06/21 17:48 Last Admin: 09/06/21 17:48 Dose: 100 ml Documented by: - Exam General: Alert, Oriented Neck: Supple Lungs: Normal Respiratory Effort, Rhonchi Cardiovascular: Regular Rate, Regular Rhythm GI/Abdominal Exam: Soft, Non-Tender, No Distention Extremities: Non-Tender, No Pedal Edema Skin: Warm, Dry, Intact Neurological: No New Focal Deficit - Patient Data Lab Results Last 24 hrs: Laboratory Results - last 24 hr 09/08/21 09/08/21 Range/Units 06:56 06:56 WBC 9.09 (4.0-11.0) K/uL RBC 5.16 (4.50-5.90) M/uL Hgb 14.4 (13.0-17.0) g/dL Hct 43.1 (38.0-50.0) % MCV 83.5 (80.0-98.0) fL MCH 27.9 (27.0-32.0) pg MCHC 33.4 (31.0-37.0) g/dL RDW Std Deviation 40.8 (28.0-62.0) fl RDW Coeff of [place] 14 (11.0-15.0) % Plt Count 291 (150-400) K/uL MPV 9.80 (7.40-12.00) fL Neut % (Auto) 65.2 (48.0-80.0) % Lymph % (Auto) 24.2 (16.0-40.0) % [place] % (Auto) 10.5 (0.0-15.0) % Eos % (Auto) 0.1 (0.0-7.0) % Baso % (Auto) 0.0 (0.0-1.5) % Neut # (Auto) 5.9 H (1.4-5.7) K/uL Lymph # (Auto) 2.2 (0.6-2.4) K/uL [place] # (Auto) 1.0 H (0.0-0.8) K/uL Eos # (Auto) 0.0 (0.0-0.7) K/uL Baso # (Auto) 0.0 (0.0-0.1) K/uL Nucleated RBC % 0.0 /100WBC Nucleated RBCs # 0 K/uL Sodium 139 (136-148) mmol/L Potassium 3.9 (3.5-5.1) mmol/L Chloride 104 (98-107) mmol/L Carbon Dioxide 25.3 (21.0-32.0) mmol/L BUN 28 H (7.0-18.0) mg/dL Creatinine 1.1 (0.8-1.3) mg/dL Est Cr Clr Drug Dosing 88.09 mL/min Estimated GFR (MDRD) > 60.0 ml/min Glucose 104 (74-106) mg/dL Calcium 8.5 (8.5-10.1) mg/dL Total Bilirubin 0.6 (0.2-1.0) mg/dL AST 61 H (15-37) IU/L ALT 144 H (14-63) IU/L Alkaline Phosphatase 32 L (46-116) U/L Total Protein 7.6 (6.4-8.2) g/dL Albumin 2.8 L (3.4-5.0) g/dL Globulin 4.8 H (2.6-4.0) g/dL Albumin/Globulin Ratio 0.6 L (0.9-1.6) Result Diagrams: 09/08/21 06:56 09/08/21 06:56 Yonatan Results Last 24 hrs: Microbiology 09/06/21 08:44 Aerobic Blood Culture - Preliminary Blood - Venous - Lab Draw NO GROWTH AFTER 2 DAYS Anaerobic Blood Culture - Preliminary NO GROWTH AFTER 2 DAYS 09/06/21 08:09 Aerobic Blood Culture - Preliminary Blood - Venous NO GROWTH AFTER 2 DAYS Anaerobic Blood Culture - Preliminary NO GROWTH AFTER 2 DAYS Sepsis Event Note - Evaluation Sepsis Screening Result: No Definite Risk - Focused Exam Vital Signs: Vital Signs Temp Pulse Resp BP Pulse Ox 09/08/21 11:57 35.6 C L 71 20 125/79 92 L 09/08/21 10:54 18 87 L 09/08/21 10:53 18 91 L 09/08/21 08:01 36.2 C 59 L 18 103/46 L 93 L 09/08/21 03:00 35.9 C L 75 20 120/71 91 L - Problem List & Annotations (1) COVID-19 SNOMED Code(s): 973392194 Code(s): U07.1 - COVID-19 Status: Acute Current Visit: Yes - Problem List Review Problem List Initiated/Reviewed/Updated: Yes - My Orders Last 24 Hours: My Active Orders 09/09/21 05:11 CBC WITH AUTO DIFF [HEME] AM COMPREHENSIVE METABOLIC PN,CMP [CHEM] AM 09/10/21 05:11 CBC WITH AUTO DIFF [HEME] AM COMPREHENSIVE METABOLIC PN,CMP [CHEM] AM 09/11/21 05:11 CBC WITH AUTO DIFF [HEME] AM COMPREHENSIVE METABOLIC PN,CMP [CHEM] AM - Plan Plan:: 36 yo male admitted for COVID-19 pneumonia with hypoxia hypoxia: on 5 L NC COVID: treating with remdesivir, dexamethasone lovenox for DVT prophylaxis.
[2021-09-08] MEDS: Enoxaparin 40 MG/0.4 ML Syringe SUBCUT SCH (15:58)
[2021-09-08] MEDS: guaiFENesin/Dextromethorphan 100-10 MG/5 ML Soln 10 ML Cup PO PRN (15:58)
[2021-09-09 07:08] LABS: BLOOD UREA NITROGEN,BUN 24 mg/dL (7.0-18.0); CARBON DIOXIDE,CO2 25.5 mmol/L (21.0-32.0); CHLORIDE,CL 105 mmol/L (98-107); GLUCOSE RANDOM 94 mg/dL (74-106); POTASSIUM,K 3.9 mmol/L (3.5-5.1); SODIUM,NA 142 mmol/L (136-148)
[2021-09-09] MEDS: REMDESIVIR 100 MG in Sodium Chloride 0.9% 100 ML IV SCH (08:19)
[2021-09-09] MEDS: Dexamethasone 4 MG Tab PO SCH (08:19)
--- NOTE | 2021-09-09 11:08 | PCM.DCSUM1 ---
Discharge Summary - Discharge Data Discharge Date: 09/09/21 Discharge Disposition: Home, Self-Care 01 Condition: Stable - Referral to Home Health Primary Care Physician: PCP None - Discharge Diagnosis/Problem(s) (1) COVID-19 SNOMED Code(s): 166140655 ICD Code: U07.1 - COVID-19 Status: Acute Current Visit: Yes - Patient Summary/Data Hospital Course: 36 yo male who presented with one week of fevers, cough and several day history of shortness of breath. On presentation he was requiring 3 L NC. He tested positive for COVID day before admission. Patient reports being vaccinated for COVID last year. He was treated with Remdesivir and dexamethasone. Today he feels much better and is requesting discharge home. He was discharged home on supplemental oxygen 2 L with exercise as he desat to 88%. He is to follow up with primary care provider in two weeks. - Discharge Plan Prescriptions/Med Rec: dexAMETHasone [Dexamethasone] 6 mg PO DAILY #6 tablet Home Medications: Home Meds Cyclobenzaprine HCl 10 mg PO TID PRN 09/06/21 [History] Doxycycline [Vibra-Tabs] 100 mg PO Q12HR 09/06/21 [History] Naproxen Sodium 550 mg PO BID 09/06/21 [History] amLODIPine Besylate [Amlodipine Besylate] 10 mg PO DAILY 09/06/21 [History] hydroCHLOROthiazide [Hydrochlorothiazide] 25 mg PO DAILY 09/06/21 [History] lisinopriL [Lisinopril] 40 mg PO DAILY 09/06/21 [History] dexAMETHasone [Dexamethasone] 6 mg PO DAILY #6 tablet 09/09/21 [Rx] Oxygen Flow Rate (L/min): 2 Patient Handouts: COVID-19 Frequently Asked Questions, How to Protect Yourself and Others - CDC (06/03/2021), COVID-19: How to Protect Yourself and Others - CDC, Infection Prevention in the Home Referrals: Anselmo Kelley [Ordering Only Provider] - 09/23/21 10:00 am - Discharge Summary/Plan Comment DC Time >30 min.: No Total # of Minutes for Discharge Time: 15 - Patient Data Vitals - Most Recent: Last Vital Signs Temp 35.8 C L 09/09/21 08:16 Pulse 76 09/09/21 08:16 Resp 18 09/09/21 08:24 BP 116/72 09/09/21 08:16 Pulse Ox 92 L 09/09/21 08:24 Weight - Most Recent: 109.724 kg I&O - Last 24 hours: Intake & Output 09/08/21 09/09/21 09/09/21 22:59 06:59 14:59 Intake Total 900 600 Balance 900 600 Lab Results - Last 24 hrs: Laboratory Results - last 24 hr 09/09/21 09/09/21 Range/Units 06:48 06:48 WBC 11.61 H (4.0-11.0) K/uL RBC 5.08 (4.50-5.90) M/uL Hgb 14.3 (13.0-17.0) g/dL Hct 42.8 (38.0-50.0) % MCV 84.3 (80.0-98.0) fL MCH 28.1 (27.0-32.0) pg MCHC 33.4 (31.0-37.0) g/dL RDW Std Deviation 41.6 (28.0-62.0) fl RDW Coeff of Arm[place] 14 (11.0-15.0) % Plt Count 361 (150-400) K/uL MPV 9.70 (7.40-12.00) fL Neut % (Auto) 66.1 (48.0-80.0) % Lymph % (Auto) 24.3 (16.0-40.0) % [place] % (Auto) 9.0 (0.0-15.0) % Eos % (Auto) 0.4 (0.0-7.0) % Baso % (Auto) 0.2 (0.0-1.5) % Neut # (Auto) 7.7 H (1.4-5.7) K/uL Lymph # (Auto) 2.8 H (0.6-2.4) K/uL [place] # (Auto) 1.0 H (0.0-0.8) K/uL Eos # (Auto) 0.1 (0.0-0.7) K/uL Baso # (Auto) 0.0 (0.0-0.1) K/uL Nucleated RBC % 0.0 /100WBC Nucleated RBCs # 0 K/uL Sodium 142 (136-148) mmol/L Potassium 3.9 (3.5-5.1) mmol/L Chloride 105 (98-107) mmol/L Carbon Dioxide 25.5 (21.0-32.0) mmol/L BUN 24 H (7.0-18.0) mg/dL Creatinine 1.1 (0.8-1.3) mg/dL Est Cr Clr Drug Dosing 88.09 mL/min Estimated GFR (MDRD) > 60.0 ml/min Glucose 94 (74-106) mg/dL Calcium 8.3 L (8.5-10.1) mg/dL Total Bilirubin 0.8 (0.2-1.0) mg/dL AST 80 H (15-37) IU/L ALT 162 H (14-63) IU/L Alkaline Phosphatase 31 L (46-116) U/L Total Protein 7.3 (6.4-8.2) g/dL Albumin 2.8 L (3.4-5.0) g/dL Globulin 4.5 H (2.6-4.0) g/dL Albumin/Globulin Ratio 0.6 L (0.9-1.6) MYLES Results - Last 24 hrs: Microbiology 09/06/21 08:44 Aerobic Blood Culture - Preliminary Blood - Venous - Lab Draw NO GROWTH AFTER 3 DAYS Anaerobic Blood Culture - Preliminary NO GROWTH AFTER 3 DAYS 09/06/21 08:09 Aerobic Blood Culture - Preliminary Blood - Venous NO GROWTH AFTER 3 DAYS Anaerobic Blood Culture - Preliminary NO GROWTH AFTER 3 DAYS Med Orders - Current: Current Medications Dexamethasone (Dexamethasone 4 Mg Tab) 6 mg PO DAILY [facility] Last Admin: 09/09/21 08:19 Dose: 6 mg Documented by: Enoxaparin Sodium (Enoxaparin 40 Mg/0.4 Ml Syringe) 40 mg SUBCUT Q24H [facility] Last Admin: 09/08/21 15:58 Dose: 40 mg Documented by: Guaifenesin/Dextromethorphan (Guaifenesin/Dextromethorphan 100-10 Mg/5 Ml Soln 10 Ml Cup) 10 ml PO Q6H PRN PRN Reason: Cough Last Admin: 09/08/21 15:58 Dose: 10 ml Documented by: Remdesivir 100 mg/ Sodium (Chloride) 100 mls @ 100 mls/hr IV Q24H [facility] Stop: 09/10/21 08:59 Last Admin: 09/09/21 08:19 Dose: 100 mls/hr Documented by: Discontinued Medications Albuterol/Ipratropium (Albuterol/Ipratropium 3.0-0.5 Mg/3 Ml Neb Soln) 3 ml NEB ONETIME ONE Stop: 09/06/21 08:26 Last Admin: 09/06/21 08:46 Dose: 3 ml Documented by: Dexamethasone (Dexamethasone 10 Mg/Ml Sdv) 10 mg IVPUSH ONETIME ONE Stop: 09/06/21 08:26 Last Admin: 09/06/21 08:46 Dose: 10 mg Documented by: Remdesivir 200 mg/ Sodium (Chloride) 250 mls @ 250 mls/hr IV ONETIME ONE Stop: 09/06/21 08:26 Last Admin: 09/06/21 09:26 Dose: Not Given Documented by: Sodium Chloride (Normal Saline) 1,000 mls @ 1,000 mls/hr IV .Bolus ONE Stop: 09/06/21 09:28 Last Admin: 09/06/21 08:46 Dose: 1,000 mls/hr Documented by: Remdesivir 200 mg/ Sodium (Chloride) 250 mls @ 250 mls/hr IV ONETIME ONE Stop: 09/06/21 09:44 Last Admin: 09/06/21 09:25 Dose: 250 mls/hr Documented by: Iopamidol (Iopamidol 755 Mg/Ml 500 Ml Multipack Bottle) 100 ml IVPUSH ONETIME STA Stop: 09/06/21 17:48 Last Admin: 09/06/21 17:48 Dose: 100 ml Documented by:
== END 2021-09-09 13:30 | disposition home or self-care (01) | DRG 177 ==
LOC: MW.ED 07:58 → MW.MS 09:08
PROVIDERS: ADMIT Internal Medicine; ATTEND Internal Medicine
PROC: XW033E5 Introduction of Remdesivir Anti-infective into Peripheral Vein, Percutaneous Approach, New Technology Group 5 (ICD-10-PCS; principal; 2021-09-06)
PROC: 3E0333Z Introduction of Anti-inflammatory into Peripheral Vein, Percutaneous Approach (ICD-10-PCS; 2021-09-06)
DX: U07.1 COVID-19 (principal); J12.82 Pneumonia due to coronavirus disease 2019; R06.02 Shortness of breath; Z79.899 Other long term (current) drug therapy; I10 Essential (primary) hypertension; E66.9 Obesity, unspecified; Z86.16 Personal history of COVID-19
CPT/HCPCS: 36415; 71045; 80053; 84484; 85025; 87040 ×2; 93005; 96374; 99285; J1100; J7030; 71275; 71275-26; 80048; 81001; A9270-GY; J1650; J7050; J7620-GY; J8540; Q9967

== ENCOUNTER 2023-02-28 10:18 | Day surgery (SDC) | payer OTHER ==
[~2023-02-28 10:18] MED LIST: Lactated Ringers 1,000 ML IV SCH
[2023-02-28] MEDS ORDERED: fentaNYL 100 MCG/2 ML SDV ONE (10:28)
[2023-02-28] MEDS ORDERED: Lidocaine 2% 5 ML SDV ONE (10:28)
[2023-02-28] MEDS ORDERED: Propofol 200 MG/20 ML SDV ONE (10:28)
[2023-02-28] MEDS ORDERED: Metoprolol Tartrate 5 MG/5 ML SDV ONE (11:06)
== END 2023-02-28 12:25 | disposition home or self-care (01) ==
LOC: MW.SDS 10:18
PROVIDERS: ATTEND Surgery
DX: Z12.11 Encounter for screening for malignant neoplasm of colon (principal); K92.1 Melena; K57.30 Diverticulosis of large intestine without perforation or abscess without bleeding; I10 Essential (primary) hypertension; F41.9 Anxiety disorder, unspecified; E66.9 Obesity, unspecified; Z68.30 Body mass index [BMI] 30.0-30.9, adult; Z79.899 Other long term (current) drug therapy; Z80.0 Family history of malignant neoplasm of digestive organs
CPT/HCPCS: 45378; J2704; J3010; J3490; J7120

== ENCOUNTER 2023-03-28 11:32 | Day surgery (SDC) | payer OTHER ==
[2023-03-28] MEDS ORDERED: Lidocaine 2% 5 ML SDV ONE (12:20)
[2023-03-28] MEDS ORDERED: Propofol 200 MG/20 ML SDV ONE (12:20)
[2023-03-28] MEDS ORDERED: Famotidine 20 MG/2 ML SDV ONE (12:33)
== END 2023-03-28 15:12 | disposition home or self-care (01) ==
LOC: MW.SDS 11:32
PROVIDERS: ATTEND Surgery
DX: K29.50 Unspecified chronic gastritis without bleeding (principal); K31.89 Other diseases of stomach and duodenum; K20.90 Esophagitis, unspecified without bleeding; K22.89 Other specified disease of esophagus; K57.30 Diverticulosis of large intestine without perforation or abscess without bleeding; I10 Essential (primary) hypertension; E78.00 Pure hypercholesterolemia, unspecified; F41.9 Anxiety disorder, unspecified; E66.9 Obesity, unspecified; Z79.899 Other long term (current) drug therapy; Z68.36 Body mass index [BMI] 36.0-36.9, adult
CPT/HCPCS: 43239; J2704; J3490; J7120

== ENCOUNTER 2023-05-22 03:46 | Emergency (ER) | payer OTHER ==
[2023-05-22 04:05] LABS: BASOPHILS ABSOLUTE AUTO 0.1 K/uL (0.0-0.1); BASOPHILS PERCENT AUTO 1.1 % (0.0-1.5); EOSINOPHILS ABSOLUTE AUTO 0.3 K/uL (0.0-0.7); EOSINOPHILS PERCENT AUTO 3.1 % (0.0-7.0); HEMATOCRIT 40.8 % (38.0-50.0); HEMOGLOBIN 13.8 g/dL (13.0-17.0); LYMPHOCYTES ABSOLUTE AUTO 4.9 K/uL (0.6-2.4); LYMPHOCYTES PERCENT AUTO 49.5 % (16.0-40.0); MEAN CORPUSCULAR HGB CONC 33.8 g/dL (31.0-37.0); MEAN CORPUSCULAR VOLUME 82.8 fL (80.0-98.0); MONOCYTES ABSOLUTE AUTO 0.9 K/uL (0.0-0.8); MONOCYTES PERCENT AUTO 8.9 % (0.0-15.0); NEUTROPHILS ABSOLUTE AUTO 3.7 K/uL (1.4-5.7); NEUTROPHILS PERCENT AUTO 37.4 % (48.0-80.0); NRBC ABSOLUTE 0 K/uL; PLATELET COUNT,PLT 523 K/uL (150-400); RED BLOOD CELL COUNT 4.93 M/uL (4.50-5.90)
[2023-05-22] MEDS ORDERED: Sodium Chloride 0.9% 2.5 ML Syringe FLUSH PRN (04:25)
[2023-05-22] MEDS ORDERED: Sodium Chloride 0.9% 10 ML Syringe FLUSH PRN (04:25)
[2023-05-22 04:31] LABS: ALBUMIN 3.8 g/dL (3.4-5.0); BILIRUBIN TOTAL 0.3 mg/dL (0.2-1.0); CALCIUM 8.8 mg/dL (8.5-10.1); CARBON DIOXIDE,CO2 26.4 mmol/L (21.0-32.0); CREATININE 1.2 mg/dL (0.8-1.3); EST CRCL DRUG DOSING (CG) 77.27 mL/min; POTASSIUM,K 3.5 mmol/L (3.5-5.1); PROTEIN TOTAL,TP 7.5 g/dL (6.4-8.2)
== END 2023-05-22 07:24 | disposition home or self-care (01) ==
LOC: MW.ED 03:46
DX: R07.9 Chest pain, unspecified (principal); R04.0 Epistaxis; I10 Essential (primary) hypertension; E78.00 Pure hypercholesterolemia, unspecified; E66.9 Obesity, unspecified; Z68.37 Body mass index [BMI] 37.0-37.9, adult; Z86.16 Personal history of COVID-19
CPT/HCPCS: 36415; 71045; 80053; 84484; 85025; 93005; 99284; J3490